=== PATIENT | male | born 1935 | race Caucasian/White ===

== ENCOUNTER 2016-11-22 09:55 | Inpatient (IN) | payer MEDICARE, OTHER ==
--- NOTE | ~2016-11-22 | HP ---
History And Physical [place] [address] [facility] [place]. [address] NAME: REBECCA SIERRA : 39 STATUS : ADM IN [facility]#: [id number] AGE: 81 ADM/REG DATE : 11/22/16 MR#: [id number] REPORT SERV DATE: 11/22/16 DICTATED BY: ANN VALENCIA DATE: 11/22/16 REPORT STATUS : Draft TRANSCRIBED BY: MODL DATE: 11/22/16 DATE OF ADMISSION: 11/22/2016 CHIEF COMPLAINT: Bright red blood per rectum. HISTORY OF PRESENT ILLNESS: The patient is a very pleasant 81-year-old white male, who comes in today, reports he started passing blood clots in his stool yesterday afternoon, had about 5 to 6 episodes, then it stopped, then at 4 to 5 this morning, he had some additional stool that was solid that had blood present and it is all bright red blood. No real abdominal pain although he says he feels kind of funny on the right side of his abdomen. It is not true pain. He has had no documented fevers or chills. No nausea or vomiting. His last colonoscopy was approximately 3 to 5 years ago per his report at [facility] but he does not recall who did the colonoscopy, and I cannot find those records. The patient is supposed to take aspirin for CAD and a drug-eluting stent but he does not consistently take it. In fact, he does not take many of the medicines he was prescribed, instead he is taking herbs that his daughter, who is a nurse practitioner, has advised him of. PAST MEDICAL HISTORY: 1. CAD with history of drug-eluting stent and STEMI in 2013. 2. Previous tobacco abuse, but very remotely almost 49 years ago. 3. Ischemic cardiomyopathy with EF of 50. 4. Valvular heart disease. 5. Hyperlipidemia. 6. Hypertension. 7. Glaucoma. 8. Cataracts. 9. Previous diverticulitis. FAMILY HISTORY: No premature coronary disease. ALLERGIES: TALWIN AND MULTIPLE OTHERS LISTED ON HIS MAR. SOCIAL HISTORY: He does not smoke and he has not smoked in 49 years and does not use any alcohol. He is . His is at bedside. REVIEW OF SYSTEMS: Full 10-point review of systems obtained. Pertinent positives mentioned in the HPI. PHYSICAL EXAMINATION: VITAL SIGNS: Blood pressure 168/89, temperature 97.8, pulse 63, respiratory rate 14, and sats 99%. GENERAL: Well-developed white male, in no apparent distress. HEENT: Normocephalic, atraumatic. HEART: Regular rate and rhythm without murmurs, rubs, or gallops. LUNGS: Grossly clear. ABDOMEN: Soft, nontender, nondistended. EXTREMITIES: Warm and dry. History And Physical [address] [address] NAME: REBECCA SIERRA : 37 STATUS : ADM IN [facility]#: [id number] AGE: 81 ADM/REG DATE : 11/22/16 MR#: [id number] REPORT SERV DATE: 11/22/16 DICTATED BY: ANN VALENCIA DATE: 11/22/16 REPORT STATUS : Draft TRANSCRIBED BY: MARK DATE: 11/22/16 SKIN: Intact without obvious rashes or lesions. : He was heme positive per the ER with bright red blood. LABORATORY AND X-RAY: Basic metabolic panel is essentially normal. LFTs are normal other than a total bilirubin of 2. CBC shows an H and H of 15 and 44 with a white count of 8 and a platelet count of 181. Coags are normal. ASSESSMENT/PLAN: 1. Lower GI bleeding. Hemoglobin is stable. Vital signs are stable. He is appropriate for a tele bed. We will allow clear liquids, n.p.o. after midnight. Place him on IV PPI. Check his hemoglobin every six hours and transfuse for any hemoglobin less than 8. We will consult GI for endoscopy. He will need colonoscopy. We will allow him to have clear liquids today with n.p.o. after midnight and go from there. 2. History of coronary artery disease with STEMI, not currently using his aspirin, not on a beta-fili. 3. History of ischemic cardiomyopathy with EF of 50. 4. History of hyperlipidemia. 5. History of previous diverticulitis. 6. Deep venous thrombosis prophylaxis. Hold off on any blood thinners since he has active bleeding. 7. Disposition pending above. JOSE RAUL/MARK Ann Valencia M.D. / [id number] CC: MD GELY Patino M.D.
--- NOTE | ~2016-11-22 | EGD ---
EGD REPORT [facility] [address] [address] NAME: REBECCA SIERRA : 37 STATUS : ADM IN PAT#: [id number] AGE: 81 ADM/REG DATE : 11/22/16 MR#: [id number] REPORT SERV DATE: 11/24/16 DICTATED BY: REBECCA MCNAMARA DATE: 11/24/16 REPORT STATUS : Draft [facility]ANSCRIBED BY: [facility] DATE: 11/24/16 Endoscopy Center Patient Name: Rebecca Sierra Date of : 1935 Attending MD: REBECCA MCNAMARA MD Procedure Date No Time: 11/24/2016 Procedure: Colonoscopy Indications: Hematochezia Medicines: Monitored Anesthesia Care Complications: No immediate complications. Estimated blood loss: None. Procedure: Pre-Anesthesia Assessment: - ASA Grade Assessment: III - A patient with severe systemic disease. After I obtained informed consent, the scope was passed under direct vision. Throughout the procedure, the patient's blood pressure, pulse, and oxygen saturations were monitored continuously. The CF [id number] was introduced through the anus and advanced to the cecum, identified by appendiceal orifice and ileocecal valve. The colonoscopy was performed without difficulty. The patient tolerated the procedure well. The quality of the bowel preparation was fair. Findings: The perianal and digital rectal examinations were normal. Pertinent negatives include no palpable rectal lesions. Many medium-mouthed diverticula were found in the sigmoid colon. Non-bleeding internal hemorrhoids were found during retroflexion and were small. There is no endoscopic evidence of bleeding, mass or ulcerations in the entire colon. The exam was otherwise without abnormality. Impression: - Diverticulosis in the sigmoid colon. - Non-bleeding internal hemorrhoids. - The examination was otherwise normal. - Bleeding has stopped - likely diverticular in nature Recommendation: - Return patient to hospital crane for ongoing care. - Full liquid diet. - Check hemoglobin q 12 hours until stable. Procedure Code(s): --- Professional --- 05976, Colonoscopy, flexible, proximal to splenic flexure; diagnostic, with or without collection of EGD REPORT [facility] [address] [place] [address]. [address] NAME: REBECCA SIERRA : 37 STATUS : ADM IN [facility]#: [id number] AGE: 81 ADM/REG DATE : 11/22/16 MR#: [id number] REPORT SERV DATE: 11/24/16 DICTATED BY: REBECCA MCNAMARA DATE: 11/24/16 REPORT STATUS : Draft TRANSCRIBED BY: [employer] DATE: 11/24/16 specimen(s) by brushing or washing, with or without colon decompression (separate procedure) Diagnosis Code(s): --- Professional --- K64.8, Other hemorrhoids K57.30, Diverticulosis of large intestine without perforation or abscess without bleeding K92.1, Melena CPT copyright 2013 [employer]. All rights reserved. The codes documented in this report are preliminary and upon roustabout crew leader review may be revised to meet current compliance requirements. Rebecca Mcnamara MD REBECCA MCNAMARA MD 11/24/2016 8:26 AM This report has been signed electronically. Number of Addenda: 0 Note Initiated On: 11/24/2016 7:03 AM Scope Withdrawal Time 0 hours 14 minutes 13 seconds [address] [place], [place] [id number]
--- NOTE | ~2016-11-22 | CN ---
Consultation Report [facility] [address] [place]. [address] NAME: REBECCA SIERRA : 39 STATUS : ADM IN PAT#: [id number] AGE: 81 ADM/REG DATE : 11/22/16 MR#: [id number] REPORT SERV DATE: 11/23/16 DICTATED BY: KRISTIN CELESTE DATE: 11/23/16 REPORT STATUS : Draft TRANSCRIBED BY: MODL DATE: 11/23/16 GI CONSULTATION DATE OF CONSULTATION: 11/23/2016 REASON FOR CONSULTATION: Evaluation and management of lower GI bleeding. HISTORY OF PRESENT ILLNESS: Mr. Sierra is a very pleasant 81-year-old male patient, who presented to [facility] on 11/22 with a chief complaint of lower GI bleeding. He states that his symptoms began on Tuesday, 11/21 at 1:30 in the afternoon. He states that he had a loose bowel movement with bright red blood and intermixed clots. He states he had four to five more episodes that day as well as it continued on into Tuesday, thus prompting him to come to the [facility] for further evaluation. His daughter supplies pictures of this on her cell phone, it is bright red blood with maroon clots. He has no abdominal pain. He states that he has had a history of diverticulitis. He has had colonoscopy in the past with colon polyps being removed five or more years ago. He had a small liquid bowel movement this morning, he states, with hardly any blood at all in it. Long discussion with the patient as well as the patient's daughter, who is present at the bedside, regarding management of this. Most likely, this is a diverticular bleed, cannot rule out any neoplastic process. Therefore, they have opted to go with bowel prep, colonoscopy to be done on 11/24. Risks, benefits, alternatives, complications were detailed for them to include, but not limited to risk of bleeding, perforation, infection, reaction to medication, as well as cardiac and pulmonary side effects. He is agreeable to proceed. PAST MEDICAL HISTORY: Positive for prostate cancer, coronary artery disease with a drug- eluting stent in 2013, STEMI, previous tobacco abuse, valvular heart disease, glaucoma, cataracts, diverticulitis, diverticulosis, hypertension, hyperlipidemia. FAMILY HISTORY: Noncontributory from a GI standpoint. SOCIAL HISTORY: He is , lives independently. Does not use alcohol, tobacco, or illicits. ALLERGIES: LISTED TO TALWIN, CAFFEINE, MORPHINE, CODEINE, EPINEPHRINE, AND NOVOCAIN. HOME MEDICATIONS: Vitamin C, vitamin D, CoQ10, vitamin B12, Cosopt, , fish oil, vitamin E, turmeric , and astaxanthin. REVIEW OF SYSTEMS: A 10-point review of systems has been obtained with pertinent positives being addressed in the history of present illness. PERTINENT LABORATORY DATA: Sodium is 143, potassium 3.6, BUN is 9, creatinine 0.73. White count 6.3, hemoglobin 14.1, hematocrit 41.2, platelet count 152. INR of 1.1. Consultation Report [place] [id number] [facility] [place]. [address] NAME: REBECCA SIERRA : 37 STATUS : ADM IN [facility]#: [id number] AGE: 81 ADM/REG DATE : 11/22/16 MR#: [id number] REPORT SERV DATE: 11/23/16 DICTATED BY: KRISTIN CELESTE DATE: 11/23/16 REPORT STATUS : Draft TRANSCRIBED BY: MARK DATE: 11/23/16 PHYSICAL EXAMINATION: VITAL SIGNS: Temperature 97.2, pulse 73, respirations 18, blood pressure 167/73. NEURO: Reveals an alert male, resting in bed with no focal deficits. He is oriented x3. GENERAL: Cooperative, in no acute distress. Awake and alert. HEAD, EARS, EYES, NOSE, AND THROAT: Anicteric. Pupils equal, round, reactive to light and accommodation. Normocephalic and atraumatic. NECK: Supple. No JVD. No palpable nodes. LUNGS: Clear anteriorly with normal respiratory effort exhibited and equal expansion. CARDIOVASCULAR SYSTEM: Regular rate and rhythm. S1 and S2. No murmurs, rubs, gallops, S3, or S4 appreciated. ABDOMEN: Soft, nondistended, nontender. No rebound or guarding elicited on exam. No organomegaly appreciated. Active bowel sounds in all four quadrants. EXTREMITIES: No edema. Normal distal pulses. SKIN: Warm, dry, and intact. ASSESSMENT: 1. Acute lower GI bleed, painless in nature, mostly diverticular, must rule out AVM versus neoplasm versus hemorrhoidal. 2. History of diverticulitis and colon polyps. 3. History of prostate cancer. 4. History of coronary artery disease and myocardial infarction, but no anticoagulants. PLAN: 1. Clear liquid diet and n.p.o. after midnight. 2. GoLYTELY bowel prep. 3. Colonoscopy on 11/24. 4. Follow H and H and transfuse if needed. Other recommendations to follow endoscopy. DELLA/MARK Raleigh YONNY Carballo / [id number] CC: MD Jose Patino Lisa M
--- NOTE | ~2016-11-22 | DS ---
Discharge Summary [place] [address] [place]. [address] NAME: ANDREAS SIERRA : 37 STATUS : DIS IN PAT#: [id number] AGE: 81 ADM/REG DATE : 11/22/16 MR#: [id number] REPORT SERV DATE: 11/25/16 DICTATED BY: BLAKE MENDEZ DATE: 11/24/16 REPORT STATUS : Draft TRANSCRIBED BY: MARK DATE: 11/24/16 ADMISSION DATE: 11/22/2016 DISCHARGE DATE: 11/24/2016 CONSULTATION: Gastroenterology, Dr. Andreas Garcia. PROCEDURE: Colonoscopy. Impression: Diverticulosis in the sigmoid colon. Non-bleeding internal hemorrhoids. The examination was otherwise normal. Bleeding has stopped, likely diverticula in nature. DISCHARGE DIAGNOSES: 1. Lower GI bleed. 2. Diverticular bleed. 3. History of coronary artery disease, status post remote history of coronary stent in 2012. 4. History of ischemic cardiomyopathy, ejection fraction 50%. 5. History of hyperlipidemia. 6. History of prostrate cancer. 7. History of glaucoma. DISCHARGE CONDITION: Stable. HISTORY OF PRESENT ILLNESS: For detailed HPI, please make reference to Dr. Emily Francis' dictation on 11/22/2016. In brief, this is a 81-year-old male with medical history significant for hypertension, history of coronary artery disease, status post history of coronary stent in 2012 who is currently not on chronic anti-platelet therapy, history of diverticulitis who presented to the hospital after four to five episodes of bright red blood per rectum. The patient was brought to the emergency room department. Vitals on presentation, blood pressure was 168/89, temperature was 97.8, pulse was 63, respiratory rate was 14, saturating 99% on room air. Physical exam shows a soft abdomen, nontender, nondistended. No palpably enlarged organomegaly. Chest x-ray shows no acute cardiopulmonary process. Liver function test was normal. CBC shows a hemoglobin of 15 and hematocrit of 44, WBC count of 8. Stool was positive for Hemoccult test done at the bedside. The patient was admitted to the hospitalist service for further management of lower GI bleed. HOSPITAL COURSE: 1. Lower GI bleed. The patient's hemoglobin remained stable within the range of 15 and 14.1. No further episodes of bright red blood per rectum noted during the course of this admission. Gastroenterology was consulted and recommended colonoscopy. The patient underwent colonoscopy that showed evidence of diverticulosis in the sigmoid colon. Non-bleeding internal hemorrhoids. The examination was otherwise normal. It was also noted that the bleeding had stopped. Likely nature of lower GI bleed, diverticula in origin. Post colonoscopy, patient's H and H remained stable. The patient's diet was advanced to regular diet as tolerated. If the patient continues to tolerate regular diet, the patient will be discharged home today to follow up with Discharge Summary [address] [address] NAME: ANDREAS SIERRA : 37 STATUS : DIS IN PAT#: [id number] AGE: 81 ADM/REG DATE : 11/22/16 MR#: [id number] REPORT SERV DATE: 11/25/16 DICTATED BY: BLAKE MENDEZ DATE: 11/24/16 REPORT STATUS : Draft TRANSCRIBED BY: MARK DATE: 11/24/16 primary care physician and Gastroenterology as an outpatient. 2. History of coronary artery disease with history of remote coronary stent in 2012. The patient reported that he continues to follow up with his primary cribber regularly. The patient is currently not on any antihypertensive medication or cardiac medication. The patient reported that he takes cayenne pepper at home and walks a mile every day and was taken off all antihypertensive medication by his primary care physician as well as his primary care cribber. At the time of discharge, the patient was counseled extensively on the need for cardiac medications, but the patient declined. The patient was advised to continue to follow up with his primary cribber and PCP as an outpatient. DISCHARGE DISPOSITION: Home. DISCHARGE FOLLOWUP: 1. Follow up with Cardiology as scheduled. 2. Follow up with primary care physician within one to two weeks of discharge. Greater than 30 minutes was used to prepare this patient's discharge, reconcile medication, and advise the patient on discharge plans and followup. LIDIAO/MARK Blake Mendez MD / [id number] CC: Piyush Ochoa MD
[~2016-11-22 09:55] MED LIST: ASAB PO; BRILINTA90 MG PO; COREG6 PO; GLAUCOMA EYE DROPS OP; HERBAL SUPPLEMENTS PO; LIPITOR40 PO; OCEAN NAS; PRIN5 PO; XALAT OPH
[2016-11-22 11:00] LABS: BASOPHILS 0.5 %; BASOPHILS ABSOLUTE 0.04 10/3/uL (0.0-0.16); EOSINOPHILS 2.2 %; EOSINOPHILS ABSOLUTE 0.17 10/3/uL (0.0-0.53); HEMATOCRIT 43.5 % (40.0-51.0); HEMOGLOBIN 15.2 g/dL (13.6-17.8); IMMATURE GRANULOCYTES 0.5 %; IMMATURE GRANULOCYTES ABSOLUTE 0.04 10/3/uL (0.0-0.11); LYMPHOCYTES 11.9 %; LYMPHOCYTES ABSOLUTE 0.94 10/3/uL (0.67-4.30); MANUAL DIFF NO %; MEAN CORPUS HGB CONC 34.9 g/dL (32.0-36.0); MEAN CORPUSCULAR HEMOGLOB 31.9 pg (26.0-34.0); MEAN CORPUSCULAR VOLUME 91.4 fL (80-100); MEAN PLATELET VOLUME 10.8 fL (9.2-13.0); MONOCYTES 11.4 %; NEUTROPHILS 73.5 %; PLATELET COUNT 181 10/3/uL (150-400); RBC DISTRIBUTION WIDTH 13.4 % (12.0-16.0); RED CELL COUNT 4.76 10/6/uL (4.7-6.1); WHITE BLOOD CELLS 7.9 10/3/uL (4.5-10.5)
[2016-11-22 11:09] LABS: INTERNATIONAL NORMAL RATI 1.1 UNITS (-); PARTIAL THROMBO TIME 27.8 SEC (22.5-37.2); PROTIME (NOT ORD) 13.6 SEC (12.0-14.5)
[2016-11-22 11:15] LABS: A/G RATIO 1.3 (0.7-1.9); ALBUMIN 3.7 G/DL (3.5-5.0); BUN (BLOOD UREA NITROGEN) 13 MG/DL (6-23); CALCIUM, SERUM 8.9 MG/DL (8.5-10.4); CHLORIDE, SERUM 108 MMOL/L (96-112); CO2 (CARBON DIOXIDE) 27 MMOL/L (24-34); CREATININE 0.82 MG/DL (0.70-1.30); GFR AFRICAN AMERICAN 97 ML/MIN (>=60); GFR NON AFRICAN AMERICAN 84 ML/MIN (>=60); GLOBULIN 2.8 G/DL (2.5-4.1); POTASSIUM, SERUM 3.8 MMOL/L (3.5-5.3); SGOT(AST) 11 U/L (5-40); SGPT(ALT) 20 U/L (5-65); SODIUM, SERUM 140 MMOL/L (135-148); TOTAL PROTEIN 6.5 G/DL (6.0-8.5)
[2016-11-22 11:16] LABS: ALKALINE PHOSPHATASE 69 U/L (45-117); GLUCOSE, SERUM 122 MG/DL (60-99)
[2016-11-22] MEDS ORDERED: COSOPT OPH (12:09)
[2016-11-22] MEDS ORDERED: XALAT OPH (12:09)
[2016-11-22] MEDS ORDERED: FISH-EPA1000 MG PO (12:09)
[2016-11-22] MEDS ORDERED: TURMERIC PO (12:09)
[2016-11-22] MEDS ORDERED: CO Q-10100 MG PO (12:10)
[2016-11-22] MEDS ORDERED: VITC500 PO (12:10)
[2016-11-22] MEDS ORDERED: CYANO1000T PO (12:10)
[2016-11-22] MEDS ORDERED: VITE PO (12:10)
[2016-11-22] MEDS ORDERED: CHLORELLA PO (12:11)
[2016-11-22] MEDS ORDERED: VITAMIN D31000 UNIT PO (12:11)
[2016-11-22] MEDS ORDERED: [UNRECOGNIZED DRUG - OTHER] PO (12:14)
[2016-11-22 16:47] LABS: HEMATOCRIT 43.7 % (40.0-51.0)
[2016-11-23] LABS: HEMATOCRIT 42.7 % (40.0-51.0); HEMOGLOBIN 14.6 g/dL (13.6-17.8)
[2016-11-23 05:03] LABS: BASOPHILS 0.5 %; BASOPHILS ABSOLUTE 0.03 10/3/uL (0.0-0.16); EOSINOPHILS 5.9 %; EOSINOPHILS ABSOLUTE 0.37 10/3/uL (0.0-0.53); HEMATOCRIT 41.2 % (40.0-51.0); HEMOGLOBIN 14.1 g/dL (13.6-17.8); IMMATURE GRANULOCYTES 0.6 %; IMMATURE GRANULOCYTES ABSOLUTE 0.04 10/3/uL (0.0-0.11); LYMPHOCYTES 16.2 %; LYMPHOCYTES ABSOLUTE 1.02 10/3/uL (0.67-4.30); MANUAL DIFF NO %; MEAN CORPUS HGB CONC 34.2 g/dL (32.0-36.0); MEAN CORPUSCULAR HEMOGLOB 31.8 pg (26.0-34.0); MEAN PLATELET VOLUME 10.7 fL (9.2-13.0); MONOCYTES 14.8 %; MONOCYTES ABSOLUTE 0.93 10/3/uL (0.21-1.20); PLATELET COUNT 152 10/3/uL (150-400); RBC DISTRIBUTION WIDTH 13.2 % (12.0-16.0); RED CELL COUNT 4.43 10/6/uL (4.7-6.1); WHITE BLOOD CELLS 6.3 10/3/uL (4.5-10.5)
[2016-11-23 05:08] LABS: CALCIUM, SERUM 8.3 MG/DL (8.5-10.4); CHLORIDE, SERUM 111 MMOL/L (96-112); CO2 (CARBON DIOXIDE) 23 MMOL/L (24-34); CREATININE 0.73 MG/DL (0.70-1.30); GFR AFRICAN AMERICAN 102 ML/MIN (>=60); GFR NON AFRICAN AMERICAN 88 ML/MIN (>=60); GLUCOSE, SERUM 103 MG/DL (60-99); POTASSIUM, SERUM 3.6 MMOL/L (3.5-5.3); SODIUM, SERUM 143 MMOL/L (135-148)
[2016-11-23 05:09] LABS: BUN (BLOOD UREA NITROGEN) 9 MG/DL (6-23)
[2016-11-23 09:54] LABS: HEMATOCRIT 38.4 % (40.0-51.0); HEMOGLOBIN 12.8 g/dL (13.6-17.8)
[2016-11-23 16:21] LABS: HEMATOCRIT 42.2 % (40.0-51.0); HEMOGLOBIN 14.3 g/dL (13.6-17.8)
[2016-11-24 04:38] LABS: BASOPHILS 0.5 %; BASOPHILS ABSOLUTE 0.04 10/3/uL (0.0-0.16); EOSINOPHILS 5.6 %; EOSINOPHILS ABSOLUTE 0.42 10/3/uL (0.0-0.53); HEMATOCRIT 40.5 % (40.0-51.0); HEMOGLOBIN 14.1 g/dL (13.6-17.8); IMMATURE GRANULOCYTES 0.5 %; IMMATURE GRANULOCYTES ABSOLUTE 0.04 10/3/uL (0.0-0.11); LYMPHOCYTES 15.5 %; LYMPHOCYTES ABSOLUTE 1.16 10/3/uL (0.67-4.30); MANUAL DIFF NO %; MEAN CORPUS HGB CONC 34.8 g/dL (32.0-36.0); MEAN CORPUSCULAR HEMOGLOB 31.9 pg (26.0-34.0); MEAN CORPUSCULAR VOLUME 91.6 fL (80-100); MEAN PLATELET VOLUME 11.1 fL (9.2-13.0); MONOCYTES 11.2 %; MONOCYTES ABSOLUTE 0.84 10/3/uL (0.21-1.20); NEUTROPHILS 66.7 %; NEUTROPHILS ABSOLUTE 4.99 10/3/uL (2.02-8.40); PLATELET COUNT 164 10/3/uL (150-400); RBC DISTRIBUTION WIDTH 13.4 % (12.0-16.0); RED CELL COUNT 4.42 10/6/uL (4.7-6.1); WHITE BLOOD CELLS 7.5 10/3/uL (4.5-10.5)
[2016-11-24 04:39] LABS: INTERNATIONAL NORMAL RATI 1.2 UNITS (-); PROTIME (NOT ORD) 14.7 SEC (12.0-14.5)
[2016-11-24 04:53] LABS: ALBUMIN 3.3 G/DL (3.5-5.0); CALCIUM, SERUM 8.4 MG/DL (8.5-10.4); CHLORIDE, SERUM 112 MMOL/L (96-112); CO2 (CARBON DIOXIDE) 26 MMOL/L (24-34); CREATININE 0.71 MG/DL (0.70-1.30); GFR AFRICAN AMERICAN 103 ML/MIN (>=60); GFR NON AFRICAN AMERICAN 89 ML/MIN (>=60); GLUCOSE, SERUM 107 MG/DL (60-99); PHOSPHORUS, SERUM 1.8 MG/DL (2.5-4.5); POTASSIUM, SERUM 3.3 MMOL/L (3.5-5.3); SODIUM, SERUM 144 MMOL/L (135-148)
[2016-11-24 04:54] LABS: BUN (BLOOD UREA NITROGEN) 5 MG/DL (6-23)
== END 2016-11-24 16:55 | disposition home or self-care (01) | DRG 379 ==
LOC: ER 09:55 → 6NO 14:28
PROVIDERS: Hospitalist; Internal Medicine; Internal Medicine Gastroenterology; Nurse Practitioner Family
PROC: 0DJD8ZZ Inspection of Lower Intestinal Tract, Via Natural or Artificial Opening Endoscopic (ICD-10-PCS; principal; 2016-11-24 07:00)
DX: K57.31 Diverticulosis of large intestine without perforation or abscess with bleeding (principal); I10 Essential (primary) hypertension; E78.5 Hyperlipidemia, unspecified; K64.8 Other hemorrhoids; H40.9 Unspecified glaucoma; E87.6 Hypokalemia; I25.10 Atherosclerotic heart disease of native coronary artery without angina pectoris; I25.2 Old myocardial infarction; Z95.5 Presence of coronary angioplasty implant and graft; Z85.46 Personal history of malignant neoplasm of prostate; Z87.891 Personal history of nicotine dependence; Z88.5 Allergy status to narcotic agent; Z88.4 Allergy status to anesthetic agent; Z86.010 Personal history of colon polyps
CPT/HCPCS: 36415; 80048; 80053; 80069; 85014; 85018; 85025; 85610; 85730; 86850; 86900; 86901; 93005; 96374; 99284; A9270-GY; C9113; J0360

== ENCOUNTER 2016-12-27 08:40 | Observation (INO) | payer MEDICARE, OTHER ==
--- NOTE | ~2016-12-27 | HP ---
History And Physical [place] [address] [facility] [place]. [address] NAME: ANDREAS SIERRA : 37 STATUS : ADM [place]ary PAT#: [id number] AGE: 81 ADM/REG DATE : 12/27/16 MR#: [id number] REPORT SERV DATE: 12/27/16 DICTATED BY: HARRIS VALLE DATE: 12/27/16 REPORT STATUS : Draft TRANSCRIBED BY: MODL DATE: 12/27/16 DATE OF ADMISSION: 12/27/2016 REASON FOR ADMISSION: Lower GI bleeding. HISTORY OF PRESENT ILLNESS: This is a 81-year-old white male, who was recently hospitalized 4 weeks ago. He had a colonoscopy done by Dr. Andreas Garcia, showing evidence of diverticulosis but no evidence of bleeding at the time of colonoscopy. He has had 3 colonoscopies in his lifetime; the first was done by myself approximately 10 years ago for screening which was negative at that time. This morning, he had 3 stools with bright red blood per rectum. He came to the emergency room. He has had 4 subsequent stools with blood in the toilet. Photographs were reviewed from this. He did have on the colonoscopy, found to have nonbleeding internal hemorrhoids and nonbleeding diverticula. He has had no abdominal pain. No fevers, chills, or night sweats. He has no diarrhea. He is eating his usual bulk meal with oatmeal and fiber bars daily. He is taking a large amount of supplements, some of which may be contributing to the bleeding with fish oil, vitamin E, and medications that have flavonoids in them. PAST MEDICAL HISTORY: He has a history of coronary artery disease, drug-eluting stent in 2013; previous tobacco abuse, quit 49 years ago; ischemic cardiomyopathy with ejection fraction of 50%. He does have some valvular heart disease; hyperlipidemia; hypertension; glaucoma; cataracts; and history of diverticulosis. MEDICATIONS: His home medications are listed as follows: 1. Occasional acetaminophen b.i.d. p.r.n. 2. Ascorbic acid 500 mg 2 he takes every 4 to 6 hours. 3. Vitamin D3 5000 units p.o. q.a.m. 4. Coenzyme Q 50 mg p.o. daily. 5. Vitamin B12 5000 mcg sublingually twice a day. 6. Cosopt eyedrops 1 drop each eye twice a day. 7. Xalatan 0.005% both eyes b.i.d. 8. Lipoic acid 150 mg p.o. breakfast and lunch. 9. Vitamin E 4000 units p.o. q.a.m. 10.Chlorella 1000 mg with meals three times a day. 11.Astaxanthin 4 mg p.o. with meals. 12.Creon 40,000 units 1 p.o. breakfast and lunch. 13.Elderberry liquid 1 dose with breakfast and lunch. 14.Equal 1 p.o. b.i.d. 15.Fish oil, dose unknown as 1 cap p.o. with meals three times a day. 16.Probiotics 1 daily. 17.Resveratrol 100 mg p.o. every morning. History And Physical [address] [address] NAME: ANDREAS SIERRA : 37 STATUS : ADM [place] PAT#: [id number] AGE: 81 ADM/REG DATE : 12/27/16 MR#: [id number] REPORT SERV DATE: 12/27/16 DICTATED BY: HARRIS VALLE DATE: 12/27/16 REPORT STATUS : Draft TRANSCRIBED BY: MARK DATE: 12/27/16 ALLERGIES: INCLUDE THE FOLLOWING: TALWIN; CAFFEINE; MORPHINE; CODEINE; EPINEPHRINE; AND PROCAINE. SOCIAL HISTORY: He is . Lives with . has some back problems. She is a retired OB nurse from [employer]. He is retired from [employer]. His son who is in the building home [facility] in [place] and daughter, Albina, who is a nurse educator here at [employer]. REVIEW OF SYSTEMS: He is having no chest pain, shortness of breath, fever, chills, night sweats, melena, hematemesis, nausea, vomiting, or diarrhea. He has no abdominal pain. He does have some soreness in around the anus from the passing of blood. No heat, redness. He has had no swelling in lower extremities. No fits, seizures, convulsions, unilateral weakness, nausea, vomiting, or diarrhea. He has had only the blood per rectum with no explosive diarrhea preceding this. The remainder of the review of systems is negative. PHYSICAL EXAMINATION: VITAL SIGNS: His blood pressure is 140/70 with a heart rate of 80, respiratory rate of 16. Afebrile. HEENT: EOMI. Sclerae clear. Conjunctivae pink. NECK: No bruit without any JVD. CHEST: Clear to A and P. HEART: Regular S1, S2 without murmur, gallop, or click. ABDOMEN: Soft, nontender. Bowel sounds positive. No HSM. EXTREMITIES: Have no edema. Distal pulses are intact with dorsalis pedis and posterior tibial. SKIN: Without rash, ecchymosis, or bruising. LYMPHATICS: There is no adenopathy palpable. NEUROLOGIC: He withdraws to plantar stimulation. Ekg/Ecg Technician is equal and symmetric bilaterally. Coordination intact. There is no tremor. DTRs are equal in knees. His rn orthopedic is equal and symmetric. PSYCHIATRIC: His speech is goal directed and oriented. He is pertinent to situation, person, place, and time. LABORATORY DATA: His hemoglobin was 15.5, hematocrit 45.4, white count 6.3, and platelets 175,000. His INR is 1.2 with a PT of 14.6. Sodium 137, potassium was 3.7, creatinine 0.89, BUN 13, glucose is 103. Total bilirubin is 2.1, but liver tests otherwise were normal. Type and screen was done by Dr. Rhoades, AB positive. ASSESSMENT: 1. Lower gastrointestinal bleeding. 2. Diverticulosis known. 3. ASCVD not on Plavix with drug-eluting stent. 4. Glaucoma. History And Physical [address] [address] NAME: ANDREAS SIERRA : 39 STATUS : ADM [place] PAT#: [id number] AGE: 81 ADM/REG DATE : 12/27/16 MR#: [id number] REPORT SERV DATE: 12/27/16 DICTATED BY: HARRIS VALLE DATE: 12/27/16 REPORT STATUS : Draft TRANSCRIBED BY: MODL DATE: 12/27/16 5. Potential anticoagulating supplements including vitamin E, fish oil, and medications containing flavonoids will be held. PLAN: Hold the offending agents and measure serial hemoglobin and hematocrit. If the bleeding fails to stop, we already have the diagnosis of diverticulosis and he had recent colonoscopy in the last month, I would proceed on to surgical consultation for potential cessation of bleeding source if this continues. DB/MODL Harris Valle M.D. / [id number] CC: Piyush Vincent M.D. William M. Cooney, MD
--- NOTE | ~2016-12-27 | CN ---
Consultation Report [facility] [id number] [facility] [place]. [address] NAME: REBECCA SIERRA : 37 STATUS : ADM Lary PAT#: [id number] AGE: 81 ADM/REG DATE : 12/27/16 MR#: [id number] REPORT SERV DATE: 12/28/16 DICTATED BY: TUNG SIMENTAL DATE: 12/27/16 REPORT STATUS : Draft TRANSCRIBED BY: MODL DATE: 12/27/16 CONSULT NOTE. DATE OF CONSULTATION: 12/27/2016 ATTENDING SURGEON: Tung Simental M.D. RESIDENT: Diogo Motley M.D. REASON FOR CONSULT: GI bleed. HISTORY OF PRESENT ILLNESS: This is a 81-year-old male with a history of coronary artery disease and diverticulosis, who presented to the emergency room with acute onset of bright red blood per rectum beginning this morning. The patient says he had some mild right lower quadrant abdominal discomfort at the onset of symptoms. Per the patient and the patient's daughter, the patient had multiple bowel movements throughout the day including here while in the emergency department totaling 16 episodes so far. The patient states the bowel movements have transitioned from bright red blood to some blood with clots to melanotic stools, and most recently this minimal stool with a large amount of flatus. The patient's abdominal discomfort has since resolved. He denies any chest pain, shortness of breath, headache, weakness, syncope, or any other systemic complaints. PAST MEDICAL HISTORY: 1. Coronary artery disease with stent placed in 2013. 2. Mild CHF. 3. Hyperlipidemia. 4. Hypertension. 5. Glaucoma. 6. Cataracts. 7. Diverticulosis. PAST SURGICAL HISTORY: 1. Appendectomy. 2. Tonsillectomy. 3. Colonoscopy. 4. Cardiac stent placement. ALLERGIES: TALWIN, CAFFEINE, MORPHINE, CODEINE, EPINEPHRINE, AND PROCAINE. HOME MEDICATIONS: Electronic medical reconciliation reviewed. Please see the full reconciliation for complete listing of medications. SOCIAL HISTORY: Prior smoker. Denies any current tobacco, alcohol, or illicit drug use. Consultation Report [facility] [facility] [address] [facility] [place]. [address] NAME: REBECCA SIERRA : 37 STATUS : ADM Lary PAT#: [id number] AGE: 81 ADM/REG DATE : 12/27/16 MR#: [id number] REPORT SERV DATE: 12/28/16 DICTATED BY: TUNG SIMENTAL DATE: 12/27/16 REPORT STATUS : Draft TRANSCRIBED BY: MARK DATE: 12/27/16 FAMILY HISTORY: Noncontributory. REVIEW OF SYSTEMS: Pertinent positives and negatives as above in the HPI. Remainder of review of systems is negative. PHYSICAL EXAMINATION: VITAL SIGNS: Temperature 98, blood pressure 140s/70s, heart rate 80s, respirations 16, and breathing 98% on room air. GENERAL: This is an adult white male, in no acute distress. He is alert and oriented x3. CARDIOVASCULAR: Regular rate and rhythm. PULMONARY: Clear to auscultation bilaterally. ABDOMEN: Soft, nontender, and nondistended. EXTREMITIES: No peripheral edema noted. The patient moves all extremities equally. RECTAL: No external lesions noted. Some mild internal hemorrhoids noted. Good tone. No active bleeding noted. There is a scant melanotic stool noted. LABORATORY DATA: Hemoglobin and hematocrit on admission were 15.5 and 45.4, repeat hematocrit 5 hours later was 40, platelets 175, white count 6.3, and INR is normal 0.2. Renal panel is within normal limits. LFTs are within normal limits with the exception of a total bilirubin of 2.1. ASSESSMENT AND PLAN: 1. This is a 81-year-old male with a history of coronary artery disease, prior diverticular bleed with lower gastrointestinal bleed. Symptoms seem to be improving. The patient currently hemodynamically stable and has benign abdominal exam. 2. I agree with serial hemoglobin and hematocrit checks. Agree with GI consult. 3. I suspect with fluid resuscitation and bowel rest likely resolution of bleeding. We will be available if the patient has clinical change or ongoing bleeding. /MARK Tung Simental M.D. / [id number] CC: Tung Simental M.D.
--- NOTE | ~2016-12-27 | CN ---
Consultation Report [facility] [address] [place]. [address] NAME: ANDREAS SIERRA : 37 STATUS : ADM Lary PAT#: [id number] AGE: 81 ADM/REG DATE : 12/27/16 MR#: [id number] REPORT SERV DATE: 12/28/16 DICTATED BY: KRISTIN CELESTE DATE: 12/28/16 REPORT STATUS : Draft TRANSCRIBED BY: MODL DATE: 12/28/16 GI CONSULTATION DATE OF CONSULTATION: 12/28/2016 REASON FOR CONSULTATION: Evaluation and management of GI bleeding. HISTORY OF PRESENT ILLNESS: Mr. Sierra is a very pleasant 81-year-old male patient, who we saw recently in November of this year for a chief complaint of lower GI bleeding, who underwent a colonoscopy at the direction of Dr. Andreas Garcia on 11/24/2016 with findings of diverticulosis of the sigmoid colon, nonbleeding internal hemorrhoids, otherwise normal exam. The bleeding at that time had stopped and presumed was diverticular in nature. He went home. He states that he has done well up until yesterday, 12/27/2016, when he began to have bloody bowel movements. He states that he had three bright red bloody bowel movements with intermixed clots prior to coming in, several episodes in the emergency room. He states that his last time to pass anything per rectum was around midnight, 1230 hours. Per the daughter, it is true. She states that the last time that he passed anything it was dark and tarry, and had clots in it. He denies any associated abdominal pain. He states that he has not had any constipation issues. He has not been taking Citrucel or Metamucil as directed on previous admission, but states he is eating a lot of fiber, oatmeal, and bulky type food products in the outpatient setting. His hemoglobin has remained stable at 13.8, 13.9, and 13.4. I have discussed with the patient as well as the patient's daughter, Albina, who is present at the bedside. We will plan on upper endoscopy today. We would monitor him today, if EGD is negative for bleeding source. If his bleeding per rectum returns, we would likely send him for a tagged red blood cell scan with intervention per Radiology versus repeat colonoscopy. I have discussed EGD with his daughter as well as the patient. Risks, benefits, alternatives, and complications were detailed for them to include, but not limited to risk of bleeding, perforation, infection, reaction to medication, as well as cardiac and pulmonary side effects. They are agreeable to proceed. PAST MEDICAL HISTORY: Positive for diverticulosis of the sigmoid; colon polyps; diverticular bleed (presumed in November of 2016); coronary artery disease; [place]; drug-eluting stent in 2013; previous tobacco abuse, cessation 49 years ago; ischemic cardiomyopathy, ejection fraction of 50%; valvular heart disease; hyperlipidemia; hypertension; glaucoma; cataracts; diverticulosis; and prostate cancer. FAMILY HISTORY: Noncontributory from a GI standpoint. SOCIAL HISTORY: and lives independently. No alcohol, tobacco, or illicits. ALLERGIES: TALWIN, CAFFEINE, MORPHINE, CODEINE, EPINEPHRINE, AND NOVOCAIN. HOME MEDICATIONS: Tylenol, vitamins C, vitamin D3, CoQ10, vitamin B12, Cosopt ophthalmic, Xalatan, Alpha Lipoic capsule, vitamin E, Chlorella, Creon, Elderberry, Equal, fish oil, Consultation Report [address] [place]. [address] NAME: ANDREAS SIERRA : 37 STATUS : ADM Lary PAT#: [id number] AGE: 81 ADM/REG DATE : 12/27/16 MR#: [id number] REPORT SERV DATE: 12/28/16 DICTATED BY: KRISTIN CELESTE DATE: 12/28/16 REPORT STATUS : Draft TRANSCRIBED BY: MARK DATE: 12/28/16 probiotic, and resveratrol. REVIEW OF SYSTEMS: A 10-point review of systems has been obtained with pertinent positives being addressed in the history of present illness. PHYSICAL EXAMINATION: VITAL SIGNS: Temperature 97.5, pulse 77, respirations 20, and blood pressure 148/89. NEUROLOGIC: Reveals an alert male, sitting up in bed with no focal deficits being noted. GENERAL: Cooperative, in no apparent distress. Awake, alert, and oriented x3. HEAD, EARS, EYES, NOSE, AND THROAT: Anicteric. Pupils are equal, round, and reactive to light and accommodation. Normocephalic and atraumatic. NECK: No JVD. No palpable nodes. CARDIOVASCULAR SYSTEM: Regular rate and rhythm. S1 and S2. No murmurs, rubs, gallops, S3, or S4 appreciated. LUNGS: Clear anteriorly with normal respiratory effort exhibited. Equal expansion. ABDOMEN: Soft, nondistended, and nontender. Active bowel sounds. No rebound. No guarding. No organomegaly appreciated on exam. EXTREMITIES: No edema. Normal distal pulses. SKIN: Warm, dry, and intact. PERTINENT LABORATORY DATA: Sodium 137, potassium 3.7, BUN 13, and creatinine 0.89. White count 6.3, hemoglobin 13.4, hematocrit of 38.6, and platelet count 175. INR of 1.2. ASSESSMENT: 1. Gastrointestinal bleeding, bright red blood as well as dark tarry stools. 2. History of recent lower gastrointestinal bleed, presumed diverticular in nature with sigmoid colon diverticulosis on colonoscopy. 3. History of coronary artery disease, myocardial infarction, no anticoagulants on board. 4. History of prostate cancer. PLAN: 1. EGD today. 2. Monitor. If the patient rebleeds after EGD and no source found, we would likely send him for a tagged red blood scan. If positive, to Interventional Radiology for arteriogram versus repeat colonoscopy. 3. Outpatient Citrucel. 4. If continues to recur, question of sigmoid colectomy at some point is appropriate. We will follow. DELLA/MARK Consultation Report [facility] [id number] [place]. [address] NAME: ANDREAS SIERRA : 37 STATUS : ADM Lary PAT#: [id number] AGE: 81 ADM/REG DATE : 12/27/16 MR#: [id number] REPORT SERV DATE: 12/28/16 DICTATED BY: KRISTIN CELESTE DATE: 12/28/16 REPORT STATUS : Draft TRANSCRIBED BY: MODL DATE: 12/28/16 YONNY Figueroa / [id number] CC: MD GELY Hollis
--- NOTE | ~2016-12-27 | DS ---
Discharge Summary [facility] [address] [place]. [address] NAME: ANDREAS SIERRA : 37 STATUS : DIS Lary PAT#: [id number] AGE: 81 ADM/REG DATE : 12/27/16 MR#: [id number] REPORT SERV DATE: 01/31/17 DICTATED BY: YADIRA MINER DATE: 01/29/17 REPORT STATUS : Draft TRANSCRIBED BY: MODL DATE: 01/29/17 ADMISSION DATE: 12/27/2016 DISCHARGE DATE: 12/28/2016 DISCHARGE DIAGNOSES: Include: 1. Gastrointestinal bleed, likely diverticular. 2. History of atherosclerotic coronary vascular disease with prior stenting. 3. History of diverticulosis. 4. Urinary frequency. 5. History of prostate cancer. DISCHARGE MEDICATIONS: As follows: 1. Vitamin B12 5000 mcg sublingual twice a day. 2. Vitamin D3 5000 units daily. 3. Coenzyme Q10 50 mg daily. 4. Cosopt ophthalmic twice a day both eyes. 5. Xalatan ophthalmic at bedtime both eyes. 6. Vitamin C p.r.n. 7. Chlorella 1000 mg with meals. 8. Tylenol 325 mg twice a day p.r.n. for pain. 9. Alpha lipoic acid capsule 150 mg at breakfast and lunch. 10.Astaxanthin 4 mg with meals. 11.Iron supplement 40,000 units one with breakfast and lunch. 12.Elderberry one dose with breakfast and lunch. 13.Fish oil one capsule with meals. 14.Probiotic over the counter daily. 15.Resveratrol 100 mg daily. 16.Vitamin E 400 units daily. HISTORY OF PRESENT ILLNESS: A 81-year-old male who presented with GI bleeding. Please see initial H and P of Dr. Richard Woodall, as patient admitted to the Hospitalist Service for further evaluation and treatment. Lab work was ordered and followed. PPI therapy. CONSULTANTS DURING THIS ADMISSION: Include Gastroenterology, Mazin Cruz, nurse practitioner and Dr. Andreas Garcia and also General Surgery, Dr. Tung Simental. PROCEDURES AND IMAGING DURING THIS ADMISSION: An upper GI endoscopy performed on 12/28/2016 that showed normal esophagus, normal stomach, normal duodenum. HOSPITAL COURSE: The patient's lab work was followed serially for hemoglobin monitoring. Orthostatics were checked which were within normal limits. He was seen by GI and General surgery, underwent the above described endoscopy procedure, tolerated that well. His H and H remained stable thereafter and he was felt safe for discharge home on 12/28/2016 at evening with outpatient followup with GI in approximately three-four weeks and also to follow up with primary care as scheduled to further discuss use of aspirin going forward. He was in agreement with this plan going forward, was ambulated in the hallway, tolerated Discharge Summary [address] [place] [address] NAME: ANDREAS SIERRA : 37 STATUS : DIS Lary PAT#: [id number] AGE: 81 ADM/REG DATE : 12/27/16 MR#: [id number] REPORT SERV DATE: 01/31/17 DICTATED BY: YADIRA MINER DATE: 01/29/17 REPORT STATUS : Draft TRANSCRIBED BY: MARK DATE: 01/29/17 supper and so was discharged home with the above medication regimen, followup plan. Collaborating physician, Dr. Yadira Miner. JEWELS/MARK Giuseppe Villalobos, COLORS CUSTODIAN Yadira Miner MD / [id number] CC: MD Jose Hollis Lisa M
--- NOTE | ~2016-12-27 | EGD ---
EGD REPORT [facility] [address] [place] [address] NAME: ANDREAS SIERRA : 37 STATUS : ADM Lary PAT#: [id number] AGE: 81 ADM/REG DATE : 12/27/16 MR#: [id number] REPORT SERV DATE: 12/28/16 DICTATED BY: ANDREAS MCNAMARA DATE: 12/28/16 REPORT STATUS : Draft [facility]: [facility] DATE: 12/28/16 Endoscopy Center Patient Name: Andreas Sierra Date of : 1935 Attending MD: ANDREAS MCNAMARA MD Procedure Date No Time: 12/28/2016 Procedure: Upper GI endoscopy Indications: Hematochezia, Recent gastrointestinal bleeding, Gastrointestinal bleeding source not found during previous colonoscopy Referring MD: GELY DAVID Medicines: Monitored Anesthesia Care Complications: No immediate complications. Estimated blood loss: None. Procedure: Pre-Anesthesia Assessment: - ASA Grade Assessment: III - A patient with severe systemic disease. After obtaining informed consent, the endoscope was passed under direct vision. Throughout the procedure, the patient's blood pressure, pulse, and oxygen saturations were monitored continuously. The [facility] [id number] was introduced through the mouth, and advanced to the second part of duodenum. The upper GI endoscopy was accomplished without difficulty. The patient tolerated the procedure well. Findings: The examined esophagus was normal. The stomach was normal. The examined duodenum was normal. The cardia and gastric fundus were normal on retroflexion. Impression: - Normal examination. - No bleeding source was identified - likely diverticular in nature. Recommendation: - Return patient to hospital crane for ongoing care. - Check hemoglobin q 12 hours until stable. Procedure Code(s): --- Professional --- 46418, Esophagogastroduodenoscopy, flexible, transoral; diagnostic, including collection of specimen(s) by brushing or washing, when performed (separate procedure) Diagnosis Code(s): --- Professional --- K92.2, Gastrointestinal hemorrhage, unspecified EGD REPORT [address] [address] NAME: ANDREAS SIERRA : 37 STATUS : ADM Lary PAT#: [id number] AGE: 81 ADM/REG DATE : 12/27/16 MR#: [id number] REPORT SERV DATE: 12/28/16 DICTATED BY: ANDREAS MCNAMARA DATE: 12/28/16 REPORT STATUS : Draft TRANSCRIBED BY: [facility] DATE: 12/28/16 Evens.Fatmata Perkins CPT copyright 2013 [employer]. All rights reserved. The codes documented in this report are preliminary and upon band straightener review may be revised to meet current compliance requirements. Andreas Mcnamara MD ANDREAS MCNAMARA MD 12/28/2016 9:41 AM This report has been signed electronically. Number of Addenda: 0 Note Initiated On: 12/28/2016 8:51 AM Scope Withdrawal Time 0 hours 0 minutes 0 seconds
[2016-12-27 08:27] LABS: BASOPHILS ABSOLUTE 0.06 10/3/uL (0.0-0.16); EOSINOPHILS 5.3 %; EOSINOPHILS ABSOLUTE 0.33 10/3/uL (0.0-0.53); ER CBC TAT 0 Hrs 08 Mins; HEMATOCRIT 45.4 % (40.0-51.0); HEMOGLOBIN 15.5 g/dL (13.6-17.8); IMMATURE GRANULOCYTES 0.6 %; IMMATURE GRANULOCYTES ABSOLUTE 0.04 10/3/uL (0.0-0.11); LYMPHOCYTES 14.7 %; LYMPHOCYTES ABSOLUTE 0.92 10/3/uL (0.67-4.30); MANUAL DIFF NO %; MEAN CORPUS HGB CONC 34.1 g/dL (32.0-36.0); MEAN CORPUSCULAR HEMOGLOB 31.4 pg (26.0-34.0); MEAN CORPUSCULAR VOLUME 91.9 fL (80-100); MEAN PLATELET VOLUME 10.6 fL (9.2-13.0); MONOCYTES 13.4 %; MONOCYTES ABSOLUTE 0.84 10/3/uL (0.21-1.20); NEUTROPHILS ABSOLUTE 4.06 10/3/uL (2.02-8.40); PLATELET COUNT 175 10/3/uL (150-400); RED CELL COUNT 4.94 10/6/uL (4.7-6.1); WHITE BLOOD CELLS 6.3 10/3/uL (4.5-10.5)
[2016-12-27 08:31] LABS: INTERNATIONAL NORMAL RATI 1.2 UNITS (-); PARTIAL THROMBO TIME 28.1 SEC (22.5-37.2); PROTIME (NOT ORD) 14.6 SEC (12.0-14.5)
[2016-12-27 08:39] LABS: A/G RATIO 1.4 (0.7-1.9); ALKALINE PHOSPHATASE 73 U/L (45-117); CALCIUM, SERUM 8.7 MG/DL (8.5-10.4); CHLORIDE, SERUM 104 MMOL/L (96-112); CO2 (CARBON DIOXIDE) 27 MMOL/L (24-34); CREATININE 0.89 MG/DL (0.70-1.30); GFR AFRICAN AMERICAN 94 ML/MIN (>=60); GFR NON AFRICAN AMERICAN 81 ML/MIN (>=60); GLOBULIN 2.9 G/DL (2.5-4.1); GLUCOSE, SERUM 103 MG/DL (60-99); POTASSIUM, SERUM 3.7 MMOL/L (3.5-5.3); SGOT(AST) 16 U/L (5-40); SGPT(ALT) 19 U/L (5-65); TOTAL BILIRUBIN 2.1 MG/DL (0-1.2); TOTAL PROTEIN 6.9 G/DL (6.0-8.5)
[2016-12-27 08:40] LABS: BUN (BLOOD UREA NITROGEN) 13 MG/DL (6-23); SODIUM, SERUM 137 MMOL/L (135-148)
[~2016-12-27 08:40] MED LIST changes: +CHLORELLA PO; +CO Q-10100 MG PO; +COSOPT OPH; +CYANO1000T PO; +FISH-EPA1000 MG PO; +TURMERIC PO; +VITAMIN D31000 UNIT PO; +VITC500 PO; +VITE PO; +[UNRECOGNIZED DRUG - OTHER] PO
[2016-12-27] MEDS ORDERED: T PO (09:15)
[2016-12-27] MEDS ORDERED: ALPHA LIPOIC300 MG PO (09:20)
[2016-12-27] MEDS ORDERED: [UNRECOGNIZED DRUG - OTHER] PO (09:21)
[2016-12-27] MEDS ORDERED: ELDERBERRY PO (09:34)
[2016-12-27] MEDS ORDERED: [UNRECOGNIZED DRUG - OTHER] PO (09:34)
[2016-12-27] MEDS ORDERED: FISH OIL PO (09:35)
[2016-12-27] MEDS ORDERED: PROBIOTIC PO (09:35)
[2016-12-27] MEDS ORDERED: VITAMIN D31000 UNIT PO (09:36)
[2016-12-27] MEDS ORDERED: CO Q-1050 MG PO (09:36)
[2016-12-27] MEDS ORDERED: RESVERATROL 100 MG PO (09:36)
[2016-12-27] MEDS ORDERED: VITE PO (09:36)
[2016-12-27] MEDS ORDERED: VITAMIN B-122500 MCG SL (09:36)
[2016-12-27 13:33] LABS: HEMOGLOBIN 13.8 g/dL (13.6-17.8)
[2016-12-27 13:34] LABS: HEMATOCRIT 40.4 % (40.0-51.0)
[2016-12-27 20:47] LABS: HEMATOCRIT 41.3 % (40.0-51.0); HEMOGLOBIN 13.9 g/dL (13.6-17.8)
[2016-12-28 05:06] LABS: HEMATOCRIT 38.6 % (40.0-51.0); HEMOGLOBIN 13.4 g/dL (13.6-17.8)
[2016-12-28 12:37] LABS: HEMATOCRIT 40.3 % (40.0-51.0); HEMOGLOBIN 13.4 g/dL (13.6-17.8)
[2016-12-28 18:37] LABS: HEMATOCRIT 39.2 % (40.0-51.0); HEMOGLOBIN 13.1 g/dL (13.6-17.8)
== END 2016-12-28 20:13 | disposition home or self-care (01) ==
LOC: ER 08:40 → CDU1 10:23 → CDU2 10:36 → CDU1 10:43
PROVIDERS: Hospitalist; Internal Medicine; Internal Medicine Gastroenterology; Nurse Practitioner Family
PROC: 0DJ08ZZ Inspection of Upper Intestinal Tract, Via Natural or Artificial Opening Endoscopic (ICD-10-PCS; principal; 2016-12-28 09:24)
DX: I25.10 Atherosclerotic heart disease of native coronary artery without angina pectoris (principal); K57.90 Diverticulosis of intestine, part unspecified, without perforation or abscess without bleeding; I25.5 Ischemic cardiomyopathy; I50.9 Heart failure, unspecified; I11.0 Hypertensive heart disease with heart failure; E78.5 Hyperlipidemia, unspecified; H40.9 Unspecified glaucoma; K21.9 Gastro-esophageal reflux disease without esophagitis; I25.2 Old myocardial infarction; Z79.899 Other long term (current) drug therapy; Z79.02 Long term (current) use of antithrombotics/antiplatelets; Z87.891 Personal history of nicotine dependence; Z86.010 Personal history of colon polyps; Z85.46 Personal history of malignant neoplasm of prostate; Z90.49 Acquired absence of other specified parts of digestive tract; Z98.890 Other specified postprocedural states; Z88.5 Allergy status to narcotic agent; Z88.8 Allergy status to other drugs, medicaments and biological substances
CPT/HCPCS: 36415; 80053; 85014; 85018; 85025; 85610; 85730; 86850; 86900; 86901; 93005; 96374; 99285; A9270-GY; C9113; G0378; J0360